=== PATIENT | female | born 1980 | race Caucasian/White ===

== ENCOUNTER 2024-05-04 23:15 | Emergency (ER) | payer MEDICAID, OTHER ==
[~2024-05-04] VITALS: Ht 154.9 cm; Wt 77.1 kg
[2024-05-05] MEDS ORDERED: IBUPROFEN 400 MG TABLET ONE (01:16)
[2024-05-05] MEDS: IBUPROFEN 400 MG TABLET PO ONE (01:19)
[2024-05-05 02:57] VITALS: BP 140/80; TEMP 98.1; O2SAT 98
== END 2024-05-05 03:04 | disposition home or self-care (01) ==
LOC: ER 23:28
DX: N64.4 Mastodynia (principal); N64.59 Other signs and symptoms in breast
CPT/HCPCS: 76642-RT-TC